=== PATIENT | female | born 1970 | race Caucasian/White ===

== ENCOUNTER → 2016-07-30 12:52 | Outpatient (CLI) | payer BC | END | disposition home or self-care (01) | LOC: D.LAB 12:52 → D.US 13:30 | DX: R06.00 Dyspnea, unspecified (principal); R07.89 Other chest pain ==

== ENCOUNTER 2016-09-19 14:53 | Emergency (ER) | payer BC | END 2016-09-19 17:59 | disposition home or self-care (01) | LOC: D.ER 14:53 | DX: L02.211 Cutaneous abscess of abdominal wall (principal) ==

== ENCOUNTER 2016-09-23 05:46 | Emergency (ER) | payer BC ==
[2016-09-23 07:00] LABS: BASOPHILS 0.4 % (0-2); EOSINOPHILS 2.8 % (0-7); HEMATOCRIT 39.7 % (36.0-48.0); HEMOGLOBIN 13.1 g/dL (12-16); IMMATURE GRANULOCYTES 0.2 % (0-5); LYMPHOCYTES 28.9 % (15-50); MCH 30.5 pg (26.0-34.0); MCV 92.5 fL (80.0-100.0); MEAN PLATELET VOLUME 9.6 fL (7.4-10.4); MONOCYTES 7.5 % (2-11); NEUTROPHILS 60.2 % (40-80); PLATELET COUNT 201 10x3/uL (130-400); RBC 4.29 10x6/uL (4.00-5.40); RDW 12.6 % (11.5-14.5); WBC 5.1 10x3/uL (4.8-10.8)
[2016-09-23 07:44] LABS: ALBUMIN 3.3 g/dL (3.4-5.0); ALKALINE PHOSPHATASE 115 U/L (46-116); ALT (SGPT) 39 U/L (10-68); BILIRUBIN - TOTAL 0.28 mg/dL (0.2-1.3); CALC OSMOLALITY 282 mosm/kg (275-300); CALCIUM 8.8 mg/dL (8.5-10.1); CARBON DIOXIDE 30.4 mmol/L (21.0-32.0); CHLORIDE - SERUM 105 mmol/L (98-107); CREATININE - SERUM 0.7 mg/dL (0.6-1.3); GLUCOSE 78 mg/dL (74-106); POTASSIUM - SERUM 3.6 mmol/L (3.5-5.1); SODIUM 143 mmol/L (136-145); UREA NITROGEN 9 mg/dL (7-18); eGFR NON AFRICAN AMERICAN > 90 mL/min (90-120)
== END 2016-09-23 09:07 | disposition home or self-care (01) ==
LOC: D.ER 05:46
PROVIDERS: Family Medicine
DX: L02.211 Cutaneous abscess of abdominal wall (principal); L03.311 Cellulitis of abdominal wall; R50.9 Fever, unspecified

== ENCOUNTER → 2016-10-19 14:51 | Outpatient (CLI) | payer BC | END | disposition home or self-care (01) | LOC: D.CT 14:51 | DX: R91.1 Solitary pulmonary nodule (principal) ==

== ENCOUNTER → 2018-05-11 15:50 | Outpatient (CLI) | payer BC | END | disposition home or self-care (01) | LOC: D.CT 15:50 | PROVIDERS: ATTEND Orthopaedic Surgery | DX: S52.532A Colles' fracture of left radius, initial encounter for closed fracture (principal) ==